=== PATIENT | female | born 1990 | race Asian ===

== ENCOUNTER 2016-08-27 13:47 | Day surgery (SDC) | payer OTHER ==
[2016-08-27] MEDS ORDERED: Bupivacaine 0.5% SDV PF* 30 ML VIAL ONE (14:23)
[2016-08-27] MEDS ORDERED: ceFAZolin 2 GM PREMIX (*) 2 GM/50 ML BAG IVPB ONE (14:47)
[2016-08-27 17:56] VITALS: BP 119/68
--- NOTE | 2016-08-28 12:54 | OP ---
OPERATIVE REPORT: DATE OF OPERATION: 08/27/16 DATE OF : 89 SURGEON: Jono Kendall MD. MAKEUP ARTIST: SHERRY Pepe. ANESTHESIOLOGIST: None. ANESTHESIA: Local only with digital block performed with 0.25% Marcaine. PRE-OP DIAGNOSIS: Left small finger open mallet finger with distal terminal extensor tendon lacerat ion. POST-OP DIAGNOSIS: Left small finger open mallet finger with distal terminal extensor tendon lacera tion. OPERATIVE PROCEDURE: 1. Open repair of distal terminal extensor tendon laceration. 2. Percutaneous pinning of left small finger distal interphalangeal joint in extension. INDICATIONS: Ani on 08/09/16 lacerated her distal terminal extensor tendon just a millimeter to pro ximal to the distal interphalangeal towards terminal insertion at the distal phalanx with the can kervin frias. She came to my office a few days ago. We had talked about treatment options including splinting . Given that this is an open injury with clean tendon laceration, we elected to proceed with surgic al repair of the tendon. We had talked about risks and benefits including the risk of persistent ex tensor lag despite surgery. ESTIMATED BLOOD LOSS: 5 mL. COMPLICATIONS: None. FINDINGS: As expected, an oblique laceration in the same orientation of the skin laceration of the terminal extensor tendon. DESCRIPTION OF PROCEDURE: Ani was seen in the preoperative holding area and the correct side and si te were marked. We had a time-out and then I performed a digital block to the left small finger wit h 0.25% Marcaine without epinephrine. Then, I came back to the operating room and the arm was preppe d and draped in the usual fashion and a formal time-out was performed. I made a laceration over the dorsum of the distal interphalangeal joint incorporating the oblique tr aumatic laceration. This was ended up being a Z-shaped incision. Full-thickness flaps are raised. The laceration in the terminal extensor tendon was identified. The interposed scar tissue that had developed was cleaned out to expose fresh clean healthy tendon edges. The adhesions on the tendon were freed up with the [place] blade to mobilize the tendon. At this point, I brought the distal int erphalangeal joint into 0 degrees of extension. It was then pinned in this position with 1.45 K-wir e. The terminal extensor tendon was then repaired with a 5-0 Prolene running Silfverskiold suture w ith the knots buried. Excellent apposition of the tendon edges was achieved. The suture was placed in such a way that the knots were buried. The wound was then irrigated and the skin was then close d with 5-0 nylon interrupted sutures. The pin was then bent and clipped. The wound and the pin was then dressed with Xeroform, 1 inch Cee, a volar AlumaFoam splint was placed on the finger and the n [place]an dressing was applied. She was then taken to the recovery room in stable condition. [id number]/[facility] #: [id number]
--- NOTE | 2016-08-29 12:10 | RAD ---
CPT II Codes: 6045F INDICATION: Percutaneous digit pinning procedure TECHNIQUE: Intraoperative fluoroscopy was provided during percutaneous pinning. FINDINGS: 2 spot films depict percutaneous pinning of a small finger distal interphalangeal joint.. Fluoroscopy time: 12 seconds IMPRESSION: As above.
== END 2016-08-27 17:39 | disposition home or self-care (01) ==
LOC: OREAST 13:47
PROVIDERS: ATTEND Orthopaedic Surgery Hand Surgery
DX: M20.012 Mallet finger of left finger(s) (principal); S66.327A Laceration of extensor muscle, fascia and tendon of left little finger at wrist and hand level, initial encounter; W26.8XXA Contact with other sharp object(s), not elsewhere classified, initial encounter; Y92.9 Unspecified place or not applicable
CPT/HCPCS: 76000; C1776; J0690